=== PATIENT | female | born 1985 | race Caucasian/White ===

== ENCOUNTER 2021-02-09 16:16 | Inpatient (IN) | payer OTHER ==
[~2021-02-09] VITALS: Ht 162.6 cm; Wt 86.2 kg
[2021-02-09 17:36] LABS: HEMOGLOBIN 11.9 gm/dl (12.3-15.3); RED BLOOD COUNT 3.88 M/UL (4.00-5.10); WHITE BLOOD COUNT 12.6 K/UL (4.5-11.0)
[2021-02-10] MEDS ORDERED: DOCUSATE SODIU100 MG PO (14:15)
[2021-02-10] MEDS ORDERED: IBUPROFEN600 MG PO (14:15)
[2021-02-11 04:03] LABS: HEMOGLOBIN 11.1 gm/dl (12.3-15.3)
== END 2021-02-11 16:41 | disposition home or self-care (01) | DRG 807 ==
LOC: GENOP 16:16 → OB 16:44
PROVIDERS: Obstetrics & Gynecology; ADMIT Obstetrics & Gynecology
PROC: 10E0XZZ Delivery of Products of Conception, External Approach (ICD-10-PCS; principal; 2021-02-09)
PROC: 10907ZC Drainage of Amniotic Fluid, Therapeutic from Products of Conception, Via Natural or Artificial Opening (ICD-10-PCS; 2021-02-09)
PROC: 4A1HXCZ Monitoring of Products of Conception, Cardiac Rate, External Approach (ICD-10-PCS; 2021-02-09)
PROC: 4A1HXFZ Monitoring of Products of Conception, Cardiac Rhythm, External Approach (ICD-10-PCS; 2021-02-09)
PROC: 10H07YZ Insertion of Other Device into Products of Conception, Via Natural or Artificial Opening (ICD-10-PCS; 2021-02-09)
PROC: 0U7C7ZZ Dilation of Cervix, Via Natural or Artificial Opening (ICD-10-PCS; 2021-02-09)
DX: O80 Encounter for full-term uncomplicated delivery (principal); Z37.0 Single live birth; Z3A.38 38 weeks gestation of pregnancy
CPT/HCPCS: 36415; 36600; 51702; 81001; 82800; 85014; 85018; 85025; 90471; 90715; J2590; J2795; J7120; U0003